=== PATIENT | male | born 1935 | race Caucasian/White ===

== ENCOUNTER 2020-12-31 14:10 | Outpatient (CLI) | payer MEDICARE, MEDICAID ==
[2020-12-31 14:56] LABS: BASOPHILS # (AUTO) 0.1 10^3/uL (0.0-0.1); BASOPHILS % (AUTO) 1.2 %; EOSINOPHILS # (AUTO) 0.2 10^3/uL (0.0-0.7); EOSINOPHILS % (AUTO) 2.6 %; HCT - HEMATOCRIT 38.4 % (42.0-52.0); HGB - HEMOGLOBIN 12.4 g/dL (14.0-18.0); LYMPHOCYTES # (AUTO) 1.9 10^3/uL (1.5-3.5); LYMPHOCYTES % (AUTO) 22.7 %; MEAN CORPUSCULAR HEMOGLOBIN 30.8 pg (27.0-31.0); MEAN CORPUSCULAR HGB CONC 32.3 g/dL (32.0-36.0); MEAN CORPUSCULAR VOLUME 95.5 fL (80.0-94.0); MONOCYTES # (AUTO) 0.8 10^3/uL (0.0-1.0); MONOCYTES % (AUTO) 10.2 %; NEUTROPHILS # (AUTO) 5.1 10^3/uL (1.5-6.6); PLT - PLATELET COUNT 222 10^3/uL (130-450); RED BLOOD COUNT 4.02 10^6/uL (4.70-6.10); RED CELL DISTRIBUTION WIDTH 14.4 % (12.0-15.0); WHITE BLOOD COUNT 8.2 x10^3/uL (4.8-10.8)
[2020-12-31 15:05] LABS: ALBUMIN 3.9 g/dL (3.2-5.5); ALBUMIN/GLOBULIN RATIO 1.3 (1.0-2.2); BILIRUBIN,TOTAL 0.8 mg/dL (0.2-1.0); CALCIUM 9.3 mg/dL (8.5-10.3); CREATININE 1.1 mg/dL (0.6-1.2); POTASSIUM 3.9 mmol/L (3.5-5.0); TOTAL PROTEIN 6.8 g/dL (6.7-8.2)
== END 2020-12-31 23:59 | disposition home or self-care (01) ==
LOC: LAB.R 14:10
DX: I10 Essential (primary) hypertension (principal); I35.0 Nonrheumatic aortic (valve) stenosis; R62.7 Adult failure to thrive; E78.00 Pure hypercholesterolemia, unspecified; R68.89 Other general symptoms and signs; R79.89 Other specified abnormal findings of blood chemistry
CPT/HCPCS: 80053; 85025

== ENCOUNTER 2021-01-20 11:04 | Outpatient (CLI) | payer MEDICARE, MEDICAID ==
--- NOTE | 2021-01-20 13:02 | Ultrasound Report ---
PROCEDURE: Pelvic Limited or F/U INDICATIONS: LEFT INGUINAL HERNIA TECHNIQUE: Real-time transabdominal scanning was performed of the pelvis, with image documentation. Color Doppl er ultrasound was also utilized. COMPARISON: None. FINDINGS: Scanning is performed at there are clinical concern of the palpable abnormality of the left groin. At this site, there is a prominent bowel containing hernia that measures 11.8 x 10.9 cm. This is not re ducible at the time of this examination. This appears medial to the external iliac artery and may be related to a direct inguinal hernia. IMPRESSION: Bowel containing left groin hernia, which measures up to 11.8 cm. For further evaluation, please consider a dedicated CT study with IV and oral contrast. Surgical referral is also recommended. Reviewed by: Agapito Saldaña MD on 01/20/2021 12:01 PM ROSE Approved by: Agapito Saldaña MD on 01/20/2021 12:01 PM ROSE Station ID: [id number]
== END 2021-01-20 11:05 | disposition home or self-care (01) ==
LOC: DI 11:04
PROVIDERS: ATTEND Nurse Practitioner
DX: K40.90 Unilateral inguinal hernia, without obstruction or gangrene, not specified as recurrent (principal)

== ENCOUNTER 2021-02-06 08:46 | Outpatient (CLI) | payer MEDICARE, MEDICAID, OTHER | END 2021-02-06 08:47 | disposition home or self-care (01) | LOC: DI 08:46 | PROVIDERS: ATTEND Family Medicine | DX: I11.0 Hypertensive heart disease with heart failure (principal); I50.30 Unspecified diastolic (congestive) heart failure; I27.20 Pulmonary hypertension, unspecified; I08.3 Combined rheumatic disorders of mitral, aortic and tricuspid valves | CPT/HCPCS: 93306 ==

== ENCOUNTER 2021-04-04 07:02 | Day surgery (SDC) | payer MEDICARE, OTHER, MEDICAID ==
[2021-04-04] MEDS ORDERED: BUPIVACAINE 0.25% PF 30 ML VIAL ONE (07:18)
[2021-04-04] MEDS ORDERED: ceFAZolin 2 GM/50 ML 2 GM/50 ML BAG IV ONE (07:18)
[2021-04-04] MEDS ORDERED: LIDOCAINE-MPF 1% 30 ML VIAL ONE (07:18)
[2021-04-04] MEDS ORDERED: LACTATED RINGERS 1,000 ML IV ONE (07:26)
[2021-04-04 07:28] VITALS: BP 141/83
--- NOTE | 2021-04-04 09:13 | CONSULTATION NOTE ---
Consultation Report: Patient seen in preop. Patient has history of seizures, CVAx3, dementia, CHF, A. fib. 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 Discussed with surgeon that patient should have been seen in the [facility] prior to scheduling, patient needs cardiology workup prior to surgery being performed at [facility].
== END 2021-04-04 07:03 | disposition home or self-care (01) ==
LOC: SDS 07:02
PROVIDERS: ATTEND Surgery
DX: K40.90 Unilateral inguinal hernia, without obstruction or gangrene, not specified as recurrent (principal); Z53.09 Procedure and treatment not carried out because of other contraindication; R56.9 Unspecified convulsions; F03.90 Unspecified dementia, unspecified severity, without behavioral disturbance, psychotic disturbance, mood disturbance, and anxiety; I50.9 Heart failure, unspecified; I48.91 Unspecified atrial fibrillation; I08.0 Rheumatic disorders of both mitral and aortic valves; Z86.73 Personal history of transient ischemic attack (TIA), and cerebral infarction without residual deficits

== ENCOUNTER 2021-07-06 08:00 | Outpatient (CLI) | payer MEDICARE, OTHER, MEDICAID ==
[2021-07-06 22:44] LABS: BILIRUBIN,URINE NEGATIVE (NEGATIVE); GLUCOSE, URINE (UA) NEGATIVE (NEGATIVE); KETONES,URINE (UA) NEGATIVE (NEGATIVE); LEUKOCYTE ESTERASE, URINE NEGATIVE (NEGATIVE); NITRITE,URINE NEGATIVE (NEGATIVE); OCCULT BLOOD,URINE TRACE-INTA (NEGATIVE); PROTEIN,URINE TRACE mg/dL (NEGATIVE); UROBILINOGEN,URINE 0.2 (NORMAL) E.U./dL (NORMAL)
[2021-07-06 22:45] LABS: CLARITY,URINE CLOUDY (CLEAR)
[2021-07-06 22:52] LABS: AMORPHOUS SEDIMENT,UR Marked /LPF; BACTERIA,URINE None Seen /HPF (None Seen); RBC,URINE None Seen /HPF (0-5); SQUAMOUS EPITHELIAL CELL,UR NONE SEEN (<= Few); WBC,URINE 0-3 /HPF (0-3)
== END 2021-07-06 08:01 | disposition home or self-care (01) ==
LOC: LAB 08:00
PROVIDERS: ATTEND Family Medicine
DX: N39.0 Urinary tract infection, site not specified (principal)
CPT/HCPCS: 81001; 87086

== ENCOUNTER → 2021-07-13 | Outpatient (CLI) | payer MEDICARE, OTHER, MEDICAID ==
[2021-07-13 18:46] LABS: BASOPHILS # (AUTO) 0.1 10^3/uL (0.0-0.1); EOSINOPHILS # (AUTO) 0.1 10^3/uL (0.0-0.7); EOSINOPHILS % (AUTO) 1.3 %; HCT - HEMATOCRIT 41.4 % (42.0-52.0); HGB - HEMOGLOBIN 13.2 g/dL (14.0-18.0); LYMPHOCYTES # (AUTO) 1.7 10^3/uL (1.5-3.5); MEAN CORPUSCULAR HGB CONC 31.9 g/dL (32.0-36.0); MEAN CORPUSCULAR VOLUME 97.2 fL (80.0-94.0); MEAN PLATELET VOLUME 10.5 fL (7.4-11.4); MONOCYTES # (AUTO) 0.8 10^3/uL (0.0-1.0); MONOCYTES % (AUTO) 8.5 %; NEUTROPHILS # (AUTO) 6.8 10^3/uL (1.5-6.6); NEUTROPHILS % (AUTO) 69.6 %; PLT - PLATELET COUNT 270 10^3/uL (130-450); RED BLOOD COUNT 4.26 10^6/uL (4.70-6.10); RED CELL DISTRIBUTION WIDTH 14.6 % (12.0-15.0); WHITE BLOOD COUNT 9.7 x10^3/uL (4.8-10.8)
[2021-07-13 18:54] LABS: ALBUMIN 3.9 g/dL (3.2-5.5); ALBUMIN/GLOBULIN RATIO 1.4 (1.0-2.2); CALCIUM 9.5 mg/dL (8.5-10.3); CREATININE 1.2 mg/dL (0.6-1.2); POTASSIUM 4.1 mmol/L (3.5-5.0); TOTAL PROTEIN 6.7 g/dL (6.7-8.2)
== END ==
LOC: LAB.R 08:00
PROVIDERS: ATTEND Family Medicine
DX: F03.90 Unspecified dementia, unspecified severity, without behavioral disturbance, psychotic disturbance, mood disturbance, and anxiety (principal); I10 Essential (primary) hypertension
CPT/HCPCS: 80053; 85025

== ENCOUNTER 2021-09-17 08:00 | Outpatient (CLI) | payer MEDICARE, OTHER, MEDICAID ==
[2021-09-17 22:31] LABS: ALBUMIN/GLOBULIN RATIO 1.4 (1.0-2.2); BILIRUBIN,TOTAL 0.7 mg/dL (0.2-1.0); CALCIUM 9.3 mg/dL (8.5-10.3); CREATININE 1.3 mg/dL (0.6-1.2); POTASSIUM 4.1 mmol/L (3.5-5.0); TOTAL PROTEIN 6.8 g/dL (6.7-8.2)
== END 2021-09-17 23:59 ==
LOC: LAB.R 08:00
PROVIDERS: ATTEND Hospitalist
DX: U07.1 COVID-19 (principal); R79.1 Abnormal coagulation profile; Z13.228 Encounter for screening for other metabolic disorders
CPT/HCPCS: 80053; 81599; 84145; 85025; 85379

== ENCOUNTER 2021-09-19 16:04 | Outpatient (CLI) | payer MEDICARE, OTHER, MEDICAID ==
[2021-09-19 16:38] LABS: BASOPHILS # (AUTO) 0.1 10^3/uL (0.0-0.1); BASOPHILS % (AUTO) 0.7 %; EOSINOPHILS # (AUTO) 0.1 10^3/uL (0.0-0.7); EOSINOPHILS % (AUTO) 1.5 %; HCT - HEMATOCRIT 36.1 % (42.0-52.0); HGB - HEMOGLOBIN 11.5 g/dL (14.0-18.0); LYMPHOCYTES # (AUTO) 1.9 10^3/uL (1.5-3.5); LYMPHOCYTES % (AUTO) 19.9 %; MEAN CORPUSCULAR HEMOGLOBIN 30.7 pg (27.0-31.0); MEAN CORPUSCULAR HGB CONC 31.9 g/dL (32.0-36.0); MEAN CORPUSCULAR VOLUME 96.5 fL (80.0-94.0); MEAN PLATELET VOLUME 11.3 fL (7.4-11.4); MONOCYTES # (AUTO) 0.8 10^3/uL (0.0-1.0); MONOCYTES % (AUTO) 8.8 %; NEUTROPHILS # (AUTO) 6.4 10^3/uL (1.5-6.6); NEUTROPHILS % (AUTO) 67.9 %; PLT - PLATELET COUNT 200 10^3/uL (130-450); RED BLOOD COUNT 3.74 10^6/uL (4.70-6.10); RED CELL DISTRIBUTION WIDTH 14.4 % (12.0-15.0); WHITE BLOOD COUNT 9.4 x10^3/uL (4.8-10.8)
== END 2021-09-19 16:05 | disposition home or self-care (01) ==
LOC: LAB.R 16:04
DX: I48.20 Chronic atrial fibrillation, unspecified (principal)
CPT/HCPCS: 85025

== ENCOUNTER 2021-09-21 18:31 | Outpatient (CLI) | payer MEDICARE, OTHER, MEDICAID | END 2021-09-21 18:32 | disposition critical access hospital (66) | LOC: EMS 18:31 | DX: U07.1 COVID-19 (principal) | CPT/HCPCS: A0425; A0429 ==

== ENCOUNTER 2021-09-21 18:36 | Emergency (ER) | payer MEDICARE, OTHER, MEDICAID ==
[2021-09-21] MEDS ORDERED: ALBUTEROL NEB 2.5 MG/3 ML INH STA (19:06)
[2021-09-21] MEDS ORDERED: MORPHINE 2 MG/ML CARPUJECT IVP STA (19:06)
--- NOTE | 2021-09-21 19:12 | ED Physician Documentation ---
History of Present Illness - Stated complaint Stated Complaint: SOA - Chief complaint Chief Complaint: Resp - History obtained from History obtained from: EMS - Additonal information Additional information: Patient is an 86-year-old male who lives at [facility]. Brought in by EMS. Patient is Covid positive. DNR, comfort care. Apparently had increased difficulty breathing tonight. 911 was called and patient brought here for evaluation. Patient unable to give any history. Review of Systems Unable to obtain: Dementia PD PAST MEDICAL HISTORY - Past Medical History Past Medical History: Yes Cardiovascular: Congestive heart failure, Hypertension, High cholesterol, Atrial fibrillation HEENT: Other Musculoskeletal: Fatigue - Present Medications Home Medications: Ambulatory Orders Medication Instructions Recorded Confirmed Acetaminophen [Tylenol] 650 mg PO Q4HR PRN 03/08/21 03/08/21 Aspirin [Aspirin EC] 81 mg PO DAILY 03/08/21 03/08/21 Atorvastatin Calcium [Lipitor] 80 mg PO QPM 03/08/21 03/08/21 Bisacodyl Supp [Dulcolax Supp] 10 mg [place] ONCE PRN 03/08/21 03/08/21 Carbamide Peroxide Otic Drop 10 drops OT ONCE PRN 03/08/21 03/08/21 [Debrox Otic Drops] Carboxymethylcellulose Sodium 1 drops EACHEYE QID 03/08/21 03/08/21 [Artificial Tears] Gabapentin [Neurontin] 300 mg PO HS 03/08/21 03/08/21 Mineral Oil [Mineral Oil Enema] 1 ea RC ONCE PRN 03/08/21 03/08/21 Multivitamin 1 each PO DAILY 03/08/21 03/08/21 Senna [Senokot] 2 tab PO ONCE PRN 03/08/21 03/08/21 Tamsulosin HCl [Flomax] 0.8 mg PO QPM 03/08/21 03/08/21 carvediloL [Coreg] 3.125 mg PO BID 03/08/21 03/08/21 polyethylene glycoL 3350 [Miralax] 17 gm PO ONCE PRN 03/08/21 03/08/21 Albuterol Sulf [Ventolin Hfa 1 - 2 puffs INH Q4HR PRN #1 inhaler 09/21/21 Inhaler] - Allergies Allergies/Adverse Reactions: Allergies Allergy/AdvReac Type Severity Reaction Status Date / Time No Known Drug Allergies Allergy Verified 03/08/21 12:44 PD ED PE NORMAL - Vitals Vital signs reviewed: Yes - General General: Well developed/nourished, Other (Tachypnea, alert. Patient refuses to answer any questions.) - HEENT HEENT: PERRL, Moist mucous membranes - Neck Neck: Supple, no meningeal sign - Cardiac Cardiac: RRR - Respiratory Respiratory: Other (Diffuse wheezing bilaterally) - Abdomen Abdomen: Soft, Non tender, Non distended - Derm Derm: Warm and dry, No rash - Extremities Extremities: No calf tenderness / cord - Neuro Neuro: Other (Alert.) Results - Vitals Vitals: Vital Signs - 24 hr 09/21/21 09/21/21 09/21/21 19:05 19:28 19:31 Temperature 37.2 C Heart Rate 110 H 93 99 Respiratory 25 H 33 H 30 H Rate Blood Pressure 135/105 H 135/105 H O2 Saturation 99 09/21/21 09/21/21 19:42 20:55 Temperature 36.9 C Heart Rate 84 80 Respiratory 28 H 22 Rate Blood Pressure 121/77 132/81 H O2 Saturation 100 99 Oxygen O2 Source Room air PD MEDICAL DECISION MAKING - ED course Complexity details: considered differential, d/w patient ED course: Patient was agitated and restless. He received 2 mg of morphine as well as albuterol. Wheezing improved. He is no longer restless and is requesting to go back to [facility] so he can go to sleep in his own room. No hypoxia. No further respiratory distress. Patient is DNR, comfort care. Patient will be transported back to [facility]. This document was made in part using voice recognition software. While efforts are made to proofread this document, sound alike and grammatical errors may occur. Departure - Departure Disposition: Home, Self Care Clinical Impression: COVID-19 Condition: Good Instructions: COVID-19 [facility] Follow-Up: your,doctor tomorrow [Other] Prescriptions: Albuterol Sulf [Ventolin Hfa Inhaler] 1 - 2 puffs INH Q4HR PRN #1 inhaler PRN Reason: Shortness Of Air/Wheezing Comments: A prescription for an inhaler was sent to the [facility] pharmacy. This should be used with a spacer. He can use it with a facemask attached to the spacer. Please have him follow-up with his doctor as needed for further care. Discharge Date/Time: 09/21/21 21:15
[2021-09-21] MEDS ORDERED: ALBUTEROL 1 PUFF INH STA (19:24)
[2021-09-21 20:56] VITALS: BP 132/81
== END 2021-09-21 21:15 | disposition home or self-care (01) ==
LOC: EDUNIT# → ED 18:36
DX: U07.1 COVID-19 (principal); Z66 Do not resuscitate
CPT/HCPCS: 94640; 96374; 99283

== ENCOUNTER 2021-09-21 21:23 | Outpatient (CLI) | payer MEDICARE, OTHER, MEDICAID | END 2021-09-21 21:24 | disposition home or self-care (01) | LOC: EMS 21:23 | PROVIDERS: ATTEND Emergency Medicine | DX: U07.1 COVID-19 (principal); F03.90 Unspecified dementia, unspecified severity, without behavioral disturbance, psychotic disturbance, mood disturbance, and anxiety | CPT/HCPCS: A0425; A0428 ==